=== PATIENT | male | born 1970 | race Caucasian/White ===

== ENCOUNTER 2021-06-05 17:10 | Observation (INO) | payer OTHER ==
[2021-06-05 17:38] LABS: Glucose,Whole Blood 159 mg/dL (75-99)
[2021-06-05] MEDS ORDERED: DIAZEPAM 5 MG/ML 2 ML INJ IVP STA (17:40)
[2021-06-05] MEDS ORDERED: ONDANSETRON 4 MG/2 ML VIAL IVP STA (17:40)
[2021-06-05 17:56] LABS: Basophils # (A) 0.1 k/uL (0-0.2); Basophils % (A) 1 %; Eosinophils # (A) 0.3 k/uL (0-0.7); Eosinophils % (A) 3 %; HCT 47.9 % (39.0-53.0); HGB 15.9 gm/dL (13.0-17.5); Lymphocytes # (A) 3.2 k/uL (1.0-4.8); Lymphocytes % (A) 28 %; MCH 29.4 pg (25.0-35.0); MCHC 33.2 g/dL (31.0-37.0); MCV 88.4 fL (80.0-100.0); Mean Platelet Volume 6.4; Monocytes # (A) 0.7 k/uL (0-1.0); Monocytes % (A) 6 %; Neutrophils # (A) 6.9 k/uL (1.3-7.7); Neutrophils % (A) 60 %; Platelet Count 556 k/uL (150-450); RBC 5.41 m/uL (4.30-5.90); RDW 13.3 % (11.5-15.5); WBC 11.5 k/uL (3.8-10.6)
[2021-06-05 18:05] LABS: ALT 33 U/L (4-49); AST 46 U/L (17-59); Acetaminophen <10.0 ug/mL; African American GFR (CKD) >90 (>60 ml/min/1.73 sqM); Albumin 4.6 g/dL (3.5-5.0); Alcohol <10 mg/dL; Alkaline Phosphatase 102 U/L (38-126); Anion Gap 15 mmol/L; Blood Urea Nitrogen 10 mg/dL (9-20); Calcium 9.8 mg/dL (8.4-10.2); Carbon Dioxide 20 mmol/L (22-30); Chloride 104 mmol/L (98-107); Glucose 168 mg/dL (74-99); Non-African American GFR(CKD) 90 (>60 ml/min/1.73 sqM); Potassium 3.6 mmol/L (3.5-5.1); Salicylate <1.0 mg/dL; Sodium 139 mmol/L (137-145); Total Bilirubin 0.6 mg/dL (0.2-1.3); Total Protein 7.8 g/dL (6.3-8.2)
[2021-06-05 18:15] LABS: INR 0.9 (<1.2); Partial Thromboplastin Time 21.4 sec (22.0-30.0); Prothrombin Time 10.2 sec (9.0-12.0)
--- NOTE | 2021-06-05 18:32 | CT ---
EXAMINATION TYPE: CT brain cspine wo con DATE OF EXAM: 06/05/2021 COMPARISON: CT 06/19/2010. HISTORY: trauma, ams, unresponsive CT DLP: 1796.1 mGycm Automated exposure control for dose reduction was used. TECHNIQUE: CT scan of the head and cervical spine are performed without contrast. FINDINGS: There is no acute intracranial hemorrhage, mass effect, or midline shift identified. The ventricles and sulci are within normal limits in size. The globes are intact. The visualized sinuse s demonstrate small right maxillary sinus mucus retention cyst, otherwise clear. Cervical spine is visualized in its entirety from C1 through upper thoracic levels and demonstrates s atisfactory alignment without evidence of acute fracture or dislocation. Prevertebral soft tissue ap pears within normal limits. The C1-C2 articulation is unremarkable. IMPRESSION: 1. There is no acute fracture or dislocation evident in the cervical spine. 2. No acute intracranial hemorrhage, mass effect, or midline shift is seen.
--- NOTE | 2021-06-05 18:39 | CT ---
EXAMINATION TYPE: CT ChestAbdPelvis w con DATE OF EXAM: 06/05/2021 COMPARISON: Same-day radiographs. HISTORY: trauma, ams, unresponsive CT DLP: 3930.3 mGycm Automated exposure control for dose reduction was used. CONTRAST: CT scan of the chest, abdomen and pelvis is performed without Oral Contrast and with IV Contrast, pat ient injected with 100 mL of Isovue 300. FINDINGS: LUNGS: The lungs are grossly clear, there is no concerning parenchymal mass or nodule identified. T here is no pleural effusion or pneumothorax seen. The tracheobronchial tree is patent. MEDIASTINUM: There are no greater than 1 cm hilar or mediastinal lymph nodes. No pericardial effusi on is seen. OTHER: No additional significant abnormality is seen. LIVER/GB: Hepatic steatosis. Otherwise no significant abnormality is appreciated. PANCREAS: No significant abnormality is seen. SPLEEN: No significant abnormality is seen. ADRENALS: No significant abnormality is seen. KIDNEYS: No significant abnormality is seen. BOWEL: No significant abnormality is seen. REPRODUCTIVE ORGANS: No gross abnormality seen. LYMPH NODES: No greater than 1 cm abdominal or pelvic lymph nodes are appreciated. OSSEOUS STRUCTURES: No significant abnormality is seen. OTHER: None IMPRESSION: No acute osseous fracture, abnormal fluid collection, or evidence of solid organ injury i n the thorax, abdomen, or pelvis.
--- NOTE | 2021-06-05 18:41 | XR ---
EXAMINATION TYPE: XR chest 2V DATE OF EXAM: 06/05/2021 COMPARISON: 10/14/2015 HISTORY: Altered mental status TECHNIQUE: Frontal and lateral views of the chest are obtained. FINDINGS: There is mild interstitial prominence. No significant infiltrate, pleural effusion, or pne umothorax seen. The cardiac silhouette size is mildly enlarged. The osseous structures are intact. IMPRESSION: Mild interstitial edema versus atelectasis.
[2021-06-05] MEDS ORDERED: ASPIRIN 81 MG PO STA (19:12)
[2021-06-05 19:27] LABS: Appearance,Urine Clear (Clear); Bilirubin,Urine Negative (Negative); Blood,Urine Negative (Negative); Color,Urine Light Yellow; Glucose,Urine (UA) Negative (Negative); Ketones,Urine 1+ (Negative); Leukocyte Esterase,Urine Negative (Negative); Nitrite,Urine Negative (Negative); PH, Urine 5.5 (5.0-8.0); Protein,Urine Trace (Negative); Urobilinogen,Urine <2.0 mg/dL (<2.0)
[2021-06-05 19:43] LABS: Amphetamine Screen,Urine Not Detected (NotDetected); Barbiturate Screen,Urine Detected (NotDetected); Benzodiazepines Screen,Urine Detected (NotDetected); Cocaine Screen,Urine Not Detected (NotDetected); Methadone Screen, Urine Not Detected (NotDetected); Opiate Screen,Urine Not Detected (NotDetected); Oxycodone Screen, Urine Not Detected (NotDetected); Phencyclidine Screen,Urine Not Detected (NotDetected); Tricyclic Antidepressant,Urine Not Detected (NotDetected); Urn Cannabinoid Scrn Detected (NotDetected)
--- NOTE | 2021-06-05 19:44 | P.CNNES ---
History of Present Illness Consult date: 06/05/21 Requesting physician: Radha Burgess Reason for Consult: Vertigo, nausea vomiting History of Present Illness: Patient is a 50-year-old right-handed male with history of hyperlipidemia, hypertension, migraines, chronic back pain with chronic mild left leg weakness, went for a bike ride between 3:30 to 4 PM. He was half way on his ride, when he became dizzy, everything started spinning, sweating, couldn't stand, couldn't see and then he started vomiting. He was feeling like having hot flashes. He came back home and laid down. His daughter came over at around 4:30 PM, found him crouched on the floor. When trying to get up, he was losing balance. He kept throwing up with dry heaving. He was very light and noise sensitivity, dizzy. Hard time standing up. He was having some slurred speech. Patient arrived to the hospital at 5:10 PM. His vitals on arrival was blood pressure 136/76, pulse 49, respiration 20. Saturation 99%. Chest x-ray showed mild interstitial edema, with no acute process. Computed tomography scan of the head and CT of the cervical spine are normal. CT of the abdomen and pelvis with and without contrast are normal. Patient complains of mild headache, rates 2/10. Patient denies any history of head or neck trauma in the last 6 months. Does not go to chiropractors. Patient is constantly holding his head, due to light sensitivity. Patient does not take any blood thinners. He has history of hypertension for 10 years, denies diabetes. He quit smoking 30 years ago, was a light smoker before. No alcohol or drugs. Patient takes hydrochlorothiazide 25 mg, Fioricet as needed for migraines, lisinopril 40 mg daily and simvastatin 40 mg at bedtime. He does get migraines, but not very often. He never had symptoms like this before. Review of Systems Denies any chest pain, abdominal pain. He has been having some nausea vomiting dry heaving. No fever or chills. No weight loss. Mild headache. History of migraines. Denies any weight loss. No loss of control of urine. No dysuria. No rash. All other review of systems noncontributory. Past Medical History Additional Past Medical History / Comment(s): unk patient not answering History of Any Multi-Drug Resistant Organisms: None Reported Additional Past Surgical History / Comment(s): unk patient not answering Past Psychological History: No Psychological Hx Reported Smoking Status: Never smoker Past Alcohol Use History: Occasional Past Drug Use History: Marijuana Medications and Allergies Home Medications Medication Instructions Recorded Confirmed Type Butalb/APAP/Caff 50-325-40Mg 1 tab PO Q8H PRN 06/05/21 06/05/21 History [Fioricet 50-325-40] Simvastatin 40 mg PO DAILY 06/05/21 06/05/21 History hydroCHLOROthiazide 25 mg PO DAILY 06/05/21 06/05/21 History lisinopriL 40 mg PO DAILY 06/05/21 06/05/21 History Allergies Allergy/AdvReac Type Severity Reaction Status Date / Time No Known Allergies Allergy Verified 06/05/21 19:07 Physical Examination - Vital Signs Vital Signs: Vital Signs Pulse Resp BP Pulse Ox 06/05/21 17:33 49 L 20 136/76 99 Intake and Output 06/05/21 06/05/21 06/05/21 06:59 14:59 22:59 Other: Weight 117.843 kg Patient is a middle aged male, who appears to be in distress because of dizziness, light and noise sensitivity. He has mild headache, 2/10. He appears restless, tries to sit on the edge of the bed. Almost appears like he wants to get out of the bed. Patient is slightly delirious, restless, but otherwise awake oriented to time place and person. Speech and language functions are normal. Attention, concentration and fund of knowledge is limited due to dizziness. On cranial examination, pupils are equal, round and reacting to light, visual oleary are full on confrontation, no neglect on double simultaneous stimulation. His extraocular muscles are intact with no obvious nystagmus. Face is symmetric, tongue protrudes to the midline. Palatal elevation and sensation normal, hearing and shoulder shrug normal, facial sensation normal. On muscle strength testing, there is no pronator drift. 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 In the lower extremities patient has chronic weakness of the left foot from back issues. His right ankle is normal, but weak about 4+ on the left. Patient, and his significant other and daughter all agrees that this is chronic finding. Hip flexion is 4+ on the right, 4-left side. Deep tendon reflexes are hypoactive, but symmetric and plantars downgoing. Sensory to touch is equal with no neglect on double simultaneous stimulation. Cerebellar function showed no ataxia for [id number] testing. Tone and bulk of muscles normal. Gait not checked. On general examination, there is no carotid bruit or murmur, S1-S2 audible. Abdomen is soft nontender. Chest is clear. Peripheral pulses are present. No edema. Results - Laboratory Findings CBC and BMP: 06/05/21 17:44 06/05/21 17:44 Abnormal Lab Findings: Abnormal Labs 06/05/21 06/05/21 06/05/21 17:26 17:44 17:44 WBC 11.5 H Plt Count 556 H APTT 21.4 L Carbon Dioxide Glucose POC Glucose (mg/dL) 159 H 06/05/21 17:44 WBC Plt Count APTT Carbon Dioxide 20 L Glucose 168 H POC Glucose (mg/dL) Assessment and Plan Assessment: * 50-year-old male with acute onset of vertigo, dizziness, transient visual disturbance, generalized weakness and profuse sweating. Exact cause remains uncertain. TIA/CVA in the brainstem (or cerebellum) also a possibility. Current NIH stroke scale is 0. Patient not a candidate for TPA. * Hypertension * Hyperlipidemia * Obesity * History of migraines Plan: * Patient started on aspirin 325 mg stat. * MRI of the brain to evaluate for CVA, MRA of the head rule out any intracranial vascular disease. * Carotid Doppler. * 2-D echo. * Continue statins. * We will follow. * Thank you for the consult.
[2021-06-05 19:47] LABS: Specific Gravity,Urine >1.050 (1.001-1.035)
--- NOTE | 2021-06-05 20:34 | ED ---
General Adult HPI - General Chief complaint: Dizziness Stated complaint: weakness/vomiting/sob/passing out/slur speech Time Seen by Provider: 06/05/21 17:26 Source: patient, family Mode of arrival: ambulatory Limitations: no limitations - History of Present Illness Initial comments: 50-year-old male past medical history of high cholesterol, high blood pressure who presents emergency Department with altered mental status, vertigo, nausea and vomiting. Patient reports that he was riding his bike when he had sudden onset of these symptoms. He feels as if the room is spinning. Patient appears to be in and out of consciousness. Denies any injuries or recent head trauma. Denies any fevers or chills. Reports that his symptoms were sudden onset. No history of similar in the past. Patient also reports to some midepigastric abdominal pain and chest pain. Patient is extremely diaphoretic and having difficulty answering questions. States that he is normally on cholesterol and high blood pressure medications however has not had them in a week. Denies daily drug or alcohol use. The remainder of the HPI is limited to the patient's altered mental status - Related Data Home Medications Medication Instructions Recorded Confirmed Butalb/APAP/Caff 50-325-40Mg 1 tab PO Q8H PRN 06/05/21 06/05/21 [Fioricet 50-325-40] Simvastatin 40 mg PO DAILY 06/05/21 06/05/21 hydroCHLOROthiazide 25 mg PO DAILY 06/05/21 06/05/21 lisinopriL 40 mg PO DAILY 06/05/21 06/05/21 Allergies Allergy/AdvReac Type Severity Reaction Status Date / Time No Known Allergies Allergy Verified 06/05/21 19:07 Review of Systems ROS Statement: Those systems with pertinent positive or pertinent negative responses have been documented in the HPI. ROS Other: All systems not noted in ROS Statement are negative. Past Medical History Additional Past Medical History / Comment(s): unk patient not answering History of Any Multi-Drug Resistant Organisms: None Reported Additional Past Surgical History / Comment(s): unk patient not answering Past Psychological History: No Psychological Hx Reported Smoking Status: Never smoker Past Alcohol Use History: Occasional Past Drug Use History: Marijuana General Exam Limitations: no limitations Course Vital Signs 06/05/21 06/05/21 17:33 21:35 Temperature 98.1 F Pulse Rate 49 L 68 Respiratory 20 16 Rate Blood Pressure 136/76 149/88 O2 Sat by Pulse 99 98 Oximetry EKG Findings - EKG Comments: EKG Findings:: EKG demonstrates sinus bradycardia with a ventricular rate of 49. MI interval 168. QRS 106. QTC of 442. No acute ST segment elevations. No signs of high degree block. Medical Decision Making - Medical Decision Making On arrival patient is placed in room 2. IV is established. Patient was given 5 mg of Valium for his vertiginous symptoms and 4 mg of Zofran for his vomiting. Abs are obtained. Accu-Chek is performed. 12-lead EKG is performed. He is immediately sent over for a CT of his head due to his altered mental status. CT also performed of his chest abdomen and pelvis due to his reported chest and abdominal pain with diaphoresis. Lavatory studies are reviewed and are within normal limits. UDS does come back positive for barbiturates, benzodiazepines and marijuana. Benzodiazepines likely due to the Valium. CT of the patient's brain and cervical spine demonstrates no acute fracture or dislocation in the cervical spine. No acute intracranial hemorrhage, mass effect or midline shift. Chest and pelvis fails to demonstrate any acute process. Patient is reevaluated and continues to have vertiginous symptoms. He is also extremely anxious and getting up out of bed. I did order an additional dose of Ativan. Dr. Montana is in the emergency department. I did request that he see the patient for which she does. There is concern for possible posterior stroke and therefore the patient is given a dose of aspirin and an MRI is ordered. Patient does show improvement in his agitation and diaphoresis. I discussed the treatment plan with him and his family members. Spoke with Dr. Storey who agreed to admit the patient. Patient awaiting a bed on the floor. - Lab Data Result diagrams: 06/05/21 17:44 06/05/21 17:44 Lab Results 06/05/21 06/05/21 06/05/21 Range/Units 17:26 17:44 17:44 WBC 11.5 H (3.8-10.6) k/uL RBC 5.41 (4.30-5.90) m/uL Hgb 15.9 (13.0-17.5) gm/dL Hct 47.9 (39.0-53.0) % MCV 88.4 (80.0-100.0) fL MCH 29.4 (25.0-35.0) pg MCHC 33.2 (31.0-37.0) g/dL RDW 13.3 (11.5-15.5) % Plt Count 556 H (150-450) k/uL MPV 6.4 Neutrophils % 60 % Lymphocytes % 28 % Monocytes % 6 % Eosinophils % 3 % Basophils % 1 % Neutrophils # 6.9 (1.3-7.7) k/uL Lymphocytes # 3.2 (1.0-4.8) k/uL Monocytes # 0.7 (0-1.0) k/uL Eosinophils # 0.3 (0-0.7) k/uL Basophils # 0.1 (0-0.2) k/uL PT 10.2 (9.0-12.0) sec INR 0.9 (<1.2) APTT 21.4 L (22.0-30.0) sec Sodium (137-145) mmol/L Potassium (3.5-5.1) mmol/L Chloride (98-107) mmol/L Carbon Dioxide (22-30) mmol/L Anion Gap mmol/L BUN (9-20) mg/dL Creatinine (0.66-1.25) mg/dL Est GFR (CKD-EPI)AfAm (>60 ml/min/1.73 sqM) Est GFR (CKD-EPI)NonAf (>60 ml/min/1.73 sqM) Glucose (74-99) mg/dL POC Glucose (mg/dL) 159 H (75-99) mg/dL POC Glu International Relations Teacher ID Fetterly, Seema Calcium (8.4-10.2) mg/dL Total Bilirubin (0.2-1.3) mg/dL AST (17-59) U/L ALT (4-49) U/L Alkaline Phosphatase (38-126) U/L Ammonia (<30) umol/L Troponin I (0.000-0.034) ng/mL Total Protein (6.3-8.2) g/dL Albumin (3.5-5.0) g/dL TSH (0.465-4.680) mIU/L Urine Color Urine Appearance (Clear) Urine pH (5.0-8.0) Ur Specific [place] (1.001-1.035) Urine Protein (Negative) Urine Glucose (UA) (Negative) Urine Ketones (Negative) Urine Blood (Negative) Urine Nitrite (Negative) Urine Bilirubin (Negative) Urine Urobilinogen (<2.0) mg/dL Ur Leukocyte Esterase (Negative) Salicylates mg/dL Urine Opiates Screen (NotDetected) Ur Oxycodone Screen (NotDetected) Urine Methadone Screen (NotDetected) Ur Propoxyphene Screen (NotDetected) Acetaminophen ug/mL Ur Barbiturates Screen (NotDetected) U Tricyclic Antidepress (NotDetected) Ur Phencyclidine Scrn (NotDetected) Ur Amphetamines Screen (NotDetected) U Methamphetamines Scrn (NotDetected) U Benzodiazepines Scrn (NotDetected) Urine Cocaine Screen (NotDetected) U Marijuana (THC) Screen (NotDetected) Serum Alcohol mg/dL 06/05/21 06/05/21 06/05/21 Range/Units 17:44 17:44 17:44 WBC (3.8-10.6) k/uL RBC (4.30-5.90) m/uL Hgb (13.0-17.5) gm/dL Hct (39.0-53.0) % MCV (80.0-100.0) fL MCH (25.0-35.0) pg MCHC (31.0-37.0) g/dL RDW (11.5-15.5) % Plt Count (150-450) k/uL MPV Neutrophils % % Lymphocytes % % Monocytes % % Eosinophils % % Basophils % % Neutrophils # (1.3-7.7) k/uL Lymphocytes # (1.0-4.8) k/uL Monocytes # (0-1.0) k/uL Eosinophils # (0-0.7) k/uL Basophils # (0-0.2) k/uL PT (9.0-12.0) sec INR (<1.2) APTT (22.0-30.0) sec Sodium 139 (137-145) mmol/L Potassium 3.6 (3.5-5.1) mmol/L Chloride 104 (98-107) mmol/L Carbon Dioxide 20 L (22-30) mmol/L Anion Gap 15 mmol/L BUN 10 (9-20) mg/dL Creatinine 0.98 (0.66-1.25) mg/dL Est GFR (CKD-EPI)AfAm >90 (>60 ml/min/1.73 sqM) Est GFR (CKD-EPI)NonAf 90 (>60 ml/min/1.73 sqM) Glucose 168 H (74-99) mg/dL POC Glucose (mg/dL) (75-99) mg/dL POC Glu International Relations Teacher ID Calcium 9.8 (8.4-10.2) mg/dL Total Bilirubin 0.6 (0.2-1.3) mg/dL AST 46 (17-59) U/L ALT 33 (4-49) U/L Alkaline Phosphatase 102 (38-126) U/L Ammonia <9 (<30) umol/L Troponin I (0.000-0.034) ng/mL Total Protein 7.8 (6.3-8.2) g/dL Albumin 4.6 (3.5-5.0) g/dL TSH 1.610 (0.465-4.680) mIU/L Urine Color Light Yellow Urine Appearance Clear (Clear) Urine pH 5.5 (5.0-8.0) Ur Specific [place] >1.050 H (1.001-1.035) Urine Protein Trace H (Negative) Urine Glucose (UA) Negative (Negative) Urine Ketones 1+ H (Negative) Urine Blood Negative (Negative) Urine Nitrite Negative (Negative) Urine Bilirubin Negative (Negative) Urine Urobilinogen <2.0 (<2.0) mg/dL Ur Leukocyte Esterase Negative (Negative) Salicylates <1.0 mg/dL Urine Opiates Screen Not Detected (NotDetected) Ur Oxycodone Screen Not Detected (NotDetected) Urine Methadone Screen Not Detected (NotDetected) Ur Propoxyphene Screen Not Detected (NotDetected) Acetaminophen <10.0 ug/mL Ur Barbiturates Screen Detected H (NotDetected) U Tricyclic Antidepress Not Detected (NotDetected) Ur Phencyclidine Scrn Not Detected (NotDetected) Ur Amphetamines Screen Not Detected (NotDetected) U Methamphetamines Scrn Not Detected (NotDetected) U Benzodiazepines Scrn Detected H (NotDetected) Urine Cocaine Screen Not Detected (NotDetected) U Marijuana (THC) Screen Detected H (NotDetected) Serum Alcohol <10 mg/dL 06/05/21 Range/Units 17:44 WBC (3.8-10.6) k/uL RBC (4.30-5.90) m/uL Hgb (13.0-17.5) gm/dL Hct (39.0-53.0) % MCV (80.0-100.0) fL MCH (25.0-35.0) pg MCHC (31.0-37.0) g/dL RDW (11.5-15.5) % Plt Count (150-450) k/uL MPV Neutrophils % % Lymphocytes % % Monocytes % % Eosinophils % % Basophils % % Neutrophils # (1.3-7.7) k/uL Lymphocytes # (1.0-4.8) k/uL Monocytes # (0-1.0) k/uL Eosinophils # (0-0.7) k/uL Basophils # (0-0.2) k/uL PT (9.0-12.0) sec INR (<1.2) APTT (22.0-30.0) sec Sodium (137-145) mmol/L Potassium (3.5-5.1) mmol/L Chloride (98-107) mmol/L Carbon Dioxide (22-30) mmol/L Anion Gap mmol/L BUN (9-20) mg/dL Creatinine (0.66-1.25) mg/dL Est GFR (CKD-EPI)AfAm (>60 ml/min/1.73 sqM) Est GFR (CKD-EPI)NonAf (>60 ml/min/1.73 sqM) Glucose (74-99) mg/dL POC Glucose (mg/dL) (75-99) mg/dL POC Glu International Relations Teacher ID Calcium (8.4-10.2) mg/dL Total Bilirubin (0.2-1.3) mg/dL AST (17-59) U/L ALT (4-49) U/L Alkaline Phosphatase (38-126) U/L Ammonia (<30) umol/L Troponin I <0.012 (0.000-0.034) ng/mL Total Protein (6.3-8.2) g/dL Albumin (3.5-5.0) g/dL TSH (0.465-4.680) mIU/L Urine Color Urine Appearance (Clear) Urine pH (5.0-8.0) Ur Specific [place] (1.001-1.035) Urine Protein (Negative) Urine Glucose (UA) (Negative) Urine Ketones (Negative) Urine Blood (Negative) Urine Nitrite (Negative) Urine Bilirubin (Negative) Urine Urobilinogen (<2.0) mg/dL Ur Leukocyte Esterase (Negative) Salicylates mg/dL Urine Opiates Screen (NotDetected) Ur Oxycodone Screen (NotDetected) Urine Methadone Screen (NotDetected) Ur Propoxyphene Screen (NotDetected) Acetaminophen ug/mL Ur Barbiturates Screen (NotDetected) U Tricyclic Antidepress (NotDetected) Ur Phencyclidine Scrn (NotDetected) Ur Amphetamines Screen (NotDetected) U Methamphetamines Scrn (NotDetected) U Benzodiazepines Scrn (NotDetected) Urine Cocaine Screen (NotDetected) U Marijuana (THC) Screen (NotDetected) Serum Alcohol mg/dL Disposition Clinical Impression: Vertigo, Bradycardia, Tetrahydrocannabinol (THC) use disorder, mild, abuse Disposition: ADMITTED IP TO THIS [facility] Condition: Stable Is patient prescribed a controlled substance at d/c from ED?: No Decision to Admit Reason: Admit from EC Decision Date: 06/05/21 Decision Time: 20:37
[2021-06-05] MEDS ORDERED: LORazepam 2 MG/ML INJ IV STA (20:36)
[2021-06-05] MEDS ORDERED: NALOXONE 0.4 MG/ML 1 ML VIAL IV PRN (20:37)
[2021-06-05] MEDS ORDERED: CLOPIDOGREL 75 MG TAB PO STA (21:35)
[2021-06-05] MEDS ORDERED: HYDROcodone/APAP 5-325MG 1 EACH TAB PO STA (22:00)
--- NOTE | 2021-06-05 22:12 | US ---
EXAMINATION TYPE: US carotid duplex BILAT DATE OF EXAM: 06/05/2021 COMPARISON: CT CLINICAL HISTORY: Possible TIA. Possible TIA per order. Previous smoker. Hypertension, hyperlipidemia . EXAM MEASUREMENTS: RIGHT: Peak Systolic Velocity (PSV) cm/sec ----- Right CCA: 50.3 ----- Right ICA: 52.0 ----- Right ECA: 83.1 ICA/CCA ratio: 1.0 RIGHT: End Diastole cm/sec ----- Right CCA: 12.7 ----- Right ICA: 9.2 ----- Right ECA: 8.4 LEFT: Peak Systolic Velocity (PSV) cm/sec ----- Left CCA: 68.8 ----- Left ICA: 45.9 ----- Left ECA: 79.5 ICA/CCA ratio: 0.7 LEFT: End Diastole cm/sec ----- Left CCA: 14.9 ----- Left ICA: 14.5 ----- Left ECA: 11.3 VERTEBRALS (direction of flow): Right Vertebral: Antegrade Left Vertebral: Antegrade Rhythm: Normal No elevated velocities at this time. Intimal thickening seen bilateral carotid arteries. Plaque seen within left carotid bulb. -Incidental findings: Complex area seen within right thyroid lobe: 1.3 x 1.2 x 1.4 cm. -Hypoechoic area seen within right neck: 1.4 x 1.2 x 0.7 cm. -Complex area seen within left thyroid lobe: 1.8 x 1.6 x 1.5 cm. IMPRESSION: Complex areas in both thyroid lobes likely related to benign multinodular goiter. There is antegrade flow in the vertebral arteries. The images and measurements suggest less than 25% stenosis in both internal carotid arteries. Criteria for Assigning % of Stenosis / Diameter reduction (Estimation based on the indirect measurements of the internal carotid artery velocities (ICA PSV). 1. Normal (no stenosis)=ICA PSV < 125 cm/s: ratio < 2.0: ICA EDV<40 cm/s. 2. Less than 50% stenosis=ICA PSV < 125 cm/s: ratio < 2.0: ICA EDV<40 cm/s. 3. 50 to 69% stenosis=ICA PSV of 125 to 230 cm/s: ration 2.0 ? 4.0: ICA EDV 40-100 cm/s. 4. Greater than 70% stenosis to near occlusion= ICA PSV > 230 cm/s: ratio > 4.0: ICA EDV > 100 cm/s. 5. Near occlusion= ICA PSV velocities may be low or undetectable: variable ratio and ICA EDV. 6. Total occlusion=unable to detect flow.
[2021-06-06] MEDS ORDERED: BUTALB/APAP/CAFF 50-325-40MG TAB PO PRN (10:08)
[2021-06-06] MEDS ORDERED: NON FORMULARY DRUG (Simvastatin [Simvastatin] 40 MG Tablet) PO SCH (10:15)
--- NOTE | 2021-06-06 10:15 | P.PN ---
Subjective Progress Note Date: 06/06/21 Patient was seen for a follow-up. Patient is doing better than yesterday. Patient rates his headache 3-4/10. Bright light still bothers him. Patient has slight nausea but no vomiting. He states that he got up to the bathroom and was doing well, but when he turned around, started some dizziness. His vision is fine. No numbness or tingling. No new focal weakness noticeable. Denies any problem with the speech or swallowing. No double vision. Objective - Vital Signs Vital signs: Vital Signs Temp 97.8 F 06/06/21 07:00 Pulse 61 06/06/21 07:00 Resp 20 06/06/21 07:00 BP 167/88 06/06/21 07:00 Pulse Ox 98 06/06/21 07:00 Intake & Output 06/05/21 06/06/21 06/06/21 18:59 06:59 18:59 Intake Total 0 Balance 0 Weight 117.843 kg 117.843 kg Intake: Oral 0 Other: Voiding Method Toilet # Voids 2 - Exam Patient continues to be light sensitive, covering his eyes, and using a cold cloth on his forehead. Speech and language functions are normal. He is fairly well oriented. Cranial nerves reveal normal pupils, round and reacting. Visual oleary are full on confrontation with no neglect. Extraocular muscles are intact. No nystagmus. Face is symmetric, tongue protrudes to the midline. Palatal elevation sensation normal, hearing and shoulder shrug normal. Facial sensation normal. On muscle strength testing, patient has very mild left drift without pronation. His strength is normal in the arms, except left residential mental health worker is about 4+. Normal in the deltoids biceps triceps bilaterally, and in the right residential mental health worker. In the lower extr emities hip flexion is 5 on the right, 4-left. Ankle dorsiflexion 5 on the right, 5-on the left with giveaway weakness. This is old finding. Reflexes are almost absent, except left knee which is 1+. Sensations are equal with no neglect. No ataxia for [id number] or [id number] testing. Patient walked to the bathroom and appeared quite steady. He was walking very slowly. - Labs CBC & Chem 7: 06/06/21 05:03 06/06/21 05:03 Labs: Abnormal Lab Results - Last 24 Hours (Table) 10/18/21 10/18/21 10/18/21 Range/Units 17:26 17:44 17:44 WBC 11.5 H (3.8-10.6) k/uL Plt Count 556 H (150-450) k/uL APTT 21.4 L (22.0-30.0) sec Carbon Dioxide (22-30) mmol/L Glucose (74-99) mg/dL POC Glucose (mg/dL) 159 H (75-99) mg/dL Ur Specific [place] (1.001-1.035) Urine Protein (Negative) Urine Ketones (Negative) Ur Barbiturates Screen (NotDetected) U Benzodiazepines Scrn (NotDetected) U Marijuana (THC) Screen (NotDetected) 06/05/21 06/05/21 Range/Units 17:44 17:44 WBC (3.8-10.6) k/uL Plt Count (150-450) k/uL APTT (22.0-30.0) sec Carbon Dioxide 20 L (22-30) mmol/L Glucose 168 H (74-99) mg/dL POC Glucose (mg/dL) (75-99) mg/dL Ur Specific [place] >1.050 H (1.001-1.035) Urine Protein Trace H (Negative) Urine Ketones 1+ H (Negative) Ur Barbiturates Screen Detected H (NotDetected) U Benzodiazepines Scrn Detected H (NotDetected) U Marijuana (THC) Screen Detected H (NotDetected) Assessment and Plan Assessment: * 50-year-old male with acute onset of vertigo, dizziness, transient visual disturbance, generalized weakness and profuse sweating. Exact cause remains uncertain. TIA/CVA in the brainstem (or cerebellum) also a possibility. Current NIH stroke scale is 0. Patient not a candidate for TPA. * Cerumen impaction right external auditory canal. * Hypertension * Hyperlipidemia * Obesity * History of migraines Plan: * Patient started on aspirin 325 mg stat. Patient was given 1 dose of Plavix 75 mg yesterday as well. Continue monotherapy with aspirin, unless MRI confirms CVA, then would recommend DAP. * CTA of the head and neck could not be performed yesterday because patient already had received contrast dye for CT abdomen. * Await MRI of the brain to evaluate for CVA, MRA of the head rule out any intracranial vascular disease. * Carotid Doppler showed antegrade flow in both vertebral arteries. There is less than 25% stenosis in both ICAs. Complex areas in both thyroid lobes related to benign multinodular goiter. We will defer this thyroid issue to IM. * 2-D echo pending. * Lipid panel pending, hemoglobin A1c 5.7. * Urine drug screen positive for barbiturate, benzodiazepine and marijuana. Ammonia normal 9. TSH normal 1.61. * Continue statins. Patient on Zocor 40 mg daily. Will switch to Lipitor 40 mg. * Patient has moderate amount of wax impacted in the right EAC. Suggest ENT consult for removal of the wax from the right EAC. * Telemetry monitoring so far showing sinus rhythm with sinus bradycardia. No other arrhythmia. Addendum: 2-D echo revealed normal left-ventricular size, EF greater than 55%. Left ventricle size is normal. Left atrium is mildly dilated. Mild aortic valve sclerosis. MRI of the brain without contrast revealed no acute stroke. There is small amount of fluid surrounding the optic nerves which is a nonspecific finding can occasionally be seen with papilledema or increased intracranial pressure correlate clinically. Additionally, there is a signal noted within the ophthalmic vein bilaterally which could be related to slow flow artifact. However postcontrast MRI of the brain recommended for further evaluation. MRA of the brain revealed no evidence of vascular malformation or sizable ane urysm. Stat MRI of the brain with contrast was performed, which revealed no abnormal enhancement. Lumbar puncture was recommended to evaluate for opening pressure, rule out pseudotumor cerebri, or other inflammatory/infectious process. Discussed with Dr. Matson, and agreed with initiating lumbar puncture.
--- NOTE | 2021-06-06 10:37 | MR ---
EXAMINATION TYPE: MR brain wo con DATE OF EXAM: 06/06/2021 COMPARISON: 06/05/2021 HISTORY: vertigo, weakmss, ?CVA TECHNIQUE: T1-weighted sagittal, T2, FLAIR, and diffusion axial, and T2 coronal coronal views of the brain are submitted. FINDINGS: There is no evidence of acute ischemia. Ventricular system is midline without displacement. There is a single focus of abnormal signal left parietal white matter which is nonspecific. Changes of chronic sinusitis are noted.. There is no mass effect. Craniocervical junction maintained. Sella turcica has a normal appearance. Changes of chronic sinusit is. Fluid surrounding the optic nerves is a nonspecific finding can occasionally be seen with increas ed intracranial pressure correlate clinically. Craniocervical junction maintained. IMPRESSION: 1. No diagnostic evidence of acute ischemia. 2. There is small amount of fluid surrounding the optic nerves which is a non-specific finding can oc casionally be seen with papilledema or increased intracranial pressure correlate clinically. Addition ally, there is a signal noted within the ophthalmic vein bilaterally which could be related to slow f low artifact. However, postcontrast MRI of the brain recommended for further evaluation.
--- NOTE | 2021-06-06 10:42 | MR ---
EXAMINATION TYPE: MR angio head wo con DATE OF EXAM: 06/06/2021 COMPARISON: NONE HISTORY: vertigo, weakmss, ?CVA TECHNIQUE: Utilizing 3-D [id number] intracranial MRA of the [place] was performed. FINDINGS: The vertebrobasilar and carotid systems are patent. There is no sizable aneurysm or vascular malform ation. IMPRESSION: 1. No evidence of vascular malformation or sizable aneurysm.
[2021-06-06] MEDS: ASPIRIN 325 MG TAB PO SCH (10:44)
[2021-06-06] MEDS: lisinopriL 20 MG TAB PO SCH (10:44)
[2021-06-06] MEDS: hydroCHLOROthiazide 25 MG TAB PO SCH (10:45)
[2021-06-06 10:58] LABS: African American GFR (CKD) 100.6 (60.0-200.0); Anion Gap 14.9 mmol/L (4.00-12.00); Calcium 9.7 mg/dL (8.7-10.3); Carbon Dioxide 21.1 mmol/L (21.6-31.8); Non-African American GFR(CKD) 86.8 (60.0-200.0); Potassium 4.6 mmol/L (3.5-5.5)
[2021-06-06 11:15] LABS: Basophils # (A) 0.04 X 10*3/uL (0.00-0.10); Basophils % (A) 0.5 %; Eosinophils # (A) 0.11 X 10*3/uL (0.04-0.35); Eosinophils % (A) 1.4 %; HCT 46.8 % (39.6-50.0); HGB 15.6 g/dL (13.0-17.0); Lymphocytes # (A) 1.76 X 10*3/uL (0.90-5.00); MCH 29.2 pg (27.0-32.0); MCHC 33.3 g/dL (32.0-37.0); MCV 87.6 fL (80.0-97.0); Mean Platelet Volume 8.2 fL (9.5-12.2); Monocytes # (A) 0.71 X 10*3/uL (0.20-1.00); Monocytes % (A) 9.3 %; Neutrophils # (A) 5.01 X 10*3/uL (1.80-7.70); Neutrophils % (A) 65.4 %; Platelet Count 498 X 10*3/uL (140-440); RBC 5.34 X 10*6/uL (4.40-5.60); RDW 13.5 % (11.5-14.5); WBC 7.66 X 10*3/uL (4.50-10.00)
[2021-06-06] MEDS ORDERED: MECLIZINE 25 MG TAB PO STA (12:04)
[2021-06-06 12:13] LABS: Glucose,Whole Blood 92 mg/dL (75-99)
[2021-06-06] MEDS: INSULIN ASPART (NovoLOG) 100 UNIT/ML VIAL SQ SCH ×3 (12:45→20:35)
--- NOTE | 2021-06-06 15:51 | MR ---
EXAMINATION TYPE: MR brain w con DATE OF EXAM: 06/06/2021 COMPARISON: MR brain 06/06/2021 HISTORY: vertigo, weakness, ?CVA. Abnormal MRI Brain wo done today. TECHNIQUE: Multiplanar, multisequence images of the brain and brainstem is performed without and with IV contras t, utilizing 10 mL intravenous Gadavist . FINDINGS: Postop contrast images performed. No abnormal enhancement. IMPRESSION: No abnormal enhancement is present.
--- NOTE | 2021-06-06 16:01 | ECHOF ---
Referral Reason:Vertigo, possible TIA. MEASUREMENTS -------- HEIGHT: 152.4 cm WEIGHT: 117.9 kg BP: IVSd: 1.0 cm (0.6 - 1.1) LVIDd: 5.2 cm (3.9 - 5.3) LVPWd: 1.1 cm (0.6 - 1.1) EDV(Teich): 130 ml IVSs: 1.4 cm LVIDs: 3.1 cm LVPWs: 1.4 cm %IVS Thck: 38 % ESV(Teich): 39 ml EF(Teich): 70 % %FS: 40 % SV(Teich): 91 ml LA Diam: 4.2 cm (2.7 - 3.8) RVIDd: 3.2 cm (< 3.3) LALs A4C: 5.5 cm LAAs A4C: 18.9 cm LAESV A-L A4C: 55 ml LAESV MOD A4C: 51 ml LALs A2C: 6.1 cm LAAs A2C: 20.5 cm LAESV A-L A2C: 58 ml LAESV MOD A2C: 57 ml LAESV(A-L): 60 ml LAESV Index (A-L): 28.49 ml/m Ao Diam: 2.8 cm (2.0 - 3.7) LA Diam: 4.7 cm (2.7 - 3.8) MV E [place]: 0.71 m/s MV DecT: 171 ms MV Dec [place]: 4.1 m/s MV A [place]: 0.51 m/s MV E/A Ratio: 1.39 MV PHT: 50 ms TR Vmax: 1.74 m/s TR maxP.05 mmHg RAP: 5.00 mmHg RVSP: 17.05 mmHg FINDINGS -------- Sinus rhythm. This was a technically adequate study. LV size, wall thickness and systolic function are normal, with an EF greater than 55%. The left jen tricular size is normal. The right ventricle is normal in size. LA is midly dilated 29-33ml/m2. The right atrial size is normal. There is mild aortic valve sclerosis. There is no evidence of aortic regurgitation. There is trace mitral regurgitation. Mild tricuspid regurgitation present. Right ventricular systolic pressure is normal at < 35 mmHg. The pulmonic valve was not well visualized. There is no pericardial effusion. CONCLUSIONS -------- 1. LV size, wall thickness and systolic function are normal, with an EF greater than 55%. 2. The left ventricular size is normal. 3. The right ventricle is normal in size. 4. LA is midly dilated 29-33ml/m2. 5. The right atrial size is normal. 6. There is mild aortic valve sclerosis. 7. There is trace mitral regurgitation. 8. Mild tricuspid regurgitation present. 9. The pulmonic valve was not well visualized. 10. There is no pericardial effusion. COMMANDING [employer]: Jaz Mosquera RDCS
[2021-06-06] MEDS: MECLIZINE 12.5 MG TAB PO SCH ×2 (17:52→20:41)
[2021-06-06 17:56] LABS: Glucose,Whole Blood 162 mg/dL (75-99)
--- NOTE | 2021-06-06 19:12 | P.HPIM ---
History of Present Illness H&P Date: 06/06/21 Chief Complaint: Everything spinning History of presenting complaint This is a pleasant 50-year-old patient was chronic stable medical conditions include hyperlipidemia, hypertension, migraines, chronic back pain with some left leg weakness. Patient had gone for a bike ride late afternoon yesterday. All of a sudden patient became dizzy everything started spinning perspiring couldn't see any started vomiting. He fell as he was having hot flashes. He came back home and laid down. His daughter found that when she came home that. I would get up he would lose balance. He kept throwing up and having nausea. A bit sensitive to light and noise. Some slurred speech. Patient has a slight headache. This morning patient has noted that his symptoms are worse when he mo ves his head. Denies any head trauma. Review of systems: GEN.: Tired EYES: Slight photosensitivity HEENT: None NECK: None RESPIRATORY: None CARDIOVASCULAR: None GASTROINTESTINAL: Nausea GENITOURINARY: None MUSCULOSKELETAL: Some joint pains LYMPHATICS: None HEMATOLOGICAL: None PSYCHIATRY: None NEUROLOGICAL: As above Past medical history to include: Hyperlipidemia, hypertension, chronic back pain, cervical spine problems, migraines, some radiculopathy lower extremity from back pain. Anxiety depression. Social history: Lives with his fiance. Has just started getting disability. Does not smoke. Alcohol occasionally. Does start to use marijuana for insomnia. Family history: Reviewed, noncontributory to presentation Physical examination: VITAL SIGNS: 98.7, 61, 20, 1 67/88, 98% room air GENERAL: BMI 37.3, laying in bed, avoiding light. EYES: Pupils equal. Conjunctiva normal. HEENT: External appearance of nose and ears normal, oral cavity grossly normal. NECK: JVD not raised; masses not palpable. HEART: First and second heart sounds are normal; no edema. LUNGS: Respiratory rate normal; clear to auscultation. ABDOMEN: Soft, nontender, liver spleen not palpable, no masses palpable. PSYCH: [Alert and oriented x3; mood and affect anxious l. NEUROLOGICAL: Cranial nerves grossly intact; no facial asymmetry, power and sensation grossly intact. No neck stiffness. LYMPHATICS: No lymph nodes palpable in the axilla and neck INVESTIGATIONS, reviewed in the clinical context: WBC 11.5 hemoglobin 15.9 platelets 556 sodium 139 potassium 3.6 creatinine 0.98 UA negative for leukoesterase nitrite Urine tox screen positive for barbiturates, benzodiazepines, marijuana Coronavirus [PCR]: Not detected Chest x-ray film personally reviewed by me-questionable infiltrate Chest abdomen pelvis CT, had cervical spine CT was unremarkable EKG tracing personally reviewed by me-normal sinus rhythm, 49/m Carotid Doppler no stenosis. Multinodular goiter. Assessment and plan: -This patient presents with sudden spinning of everything around him, some photophobia, some light sensitivity, nausea or vomiting. Had partial sledding of the speech. Initial computed tomography scan of the brain was unremarkable. This could be BPPV. Low-grade vestibulitis/encephalitis in the differential. Add Antivert. [place] maneuver. MRI/MRA brain. -Hyperlipidemia Simvastatin 40 mg daily -Essential hypertension Lisinopril 40 mg daily -Anxiety depression otherwise specified -Chronic insomnia melatonin Patient pending brain and head MRA MRI. Add Antivert. [place] maneuver. Home medications resumed. DVT prophylaxis. Follow with neurology. Past Medical History Past Medical History: Hyperlipidemia, Hypertension, Musculoskeletal Disorder Additional Past Medical History / Comment(s): Chronic back pain, cervical spine problems-pt unsure of what is exactly wrong. Migraines. 2 pinched nerves in back; right and left leg weakness and numbness. History of Any Multi-Drug Resistant Organisms: None Reported Past Surgical History: Appendectomy Additional Past Surgical History / Comment(s): unk patient not answering Past Anesthesia/Blood Transfusion Reactions: No Reported Reaction Past Psychological History: Anxiety, Depression, Panic Disorder Smoking Status: Former smoker Past Alcohol Use History: Occasional Past Drug Use History: Marijuana Medications and Allergies Home Medications Medication Instructions Recorded Confirmed Type Butalb/APAP/Caff 50-325-40Mg 1 tab PO Q8H PRN 06/05/21 06/05/21 History [Fioricet 50-325-40] Simvastatin 40 mg PO DAILY 06/05/21 06/05/21 History hydroCHLOROthiazide 25 mg PO DAILY 06/05/21 06/05/21 History lisinopriL 40 mg PO DAILY 06/05/21 06/05/21 History Allergies Allergy/AdvReac Type Severity Reaction Status Date / Time No Known Allergies Allergy Verified 06/05/21 19:07 Physical Exam Vitals: Vital Signs Temp Pulse Pulse Resp BP BP Pulse Ox 06/06/21 07:00 97.8 F 61 20 167/88 98 06/06/21 01:04 58 L 20 06/06/21 00:52 98.4 F 59 L 17 149/81 98 06/05/21 23:00 58 L 20 06/05/21 22:47 97.6 F 58 L 20 148/96 97 06/05/21 22:32 97.4 F L 63 18 133/85 97 06/05/21 21:35 98.1 F 68 16 149/88 98 06/05/21 17:33 49 L 20 136/76 99 Intake and Output 06/05/21 06/06/21 06/06/21 22:59 06:59 14:59 Intake Total 0 Balance 0 Intake: Oral 0 Other: Voiding Method Toilet # Voids 2 Weight 117.843 kg Results CBC & Chem 7: 06/06/21 05:03 06/06/21 05:03 Labs: Abnormal Lab Results - Last 24 Hours (Table) 06/05/21 06/05/21 06/05/21 Range/Units 17:26 17:44 17:44 WBC 11.5 H (3.8-10.6) k/uL Plt Count 556 H (150-450) k/uL APTT 21.4 L (22.0-30.0) sec Carbon Dioxide (22-30) mmol/L Glucose (74-99) mg/dL POC Glucose (mg/dL) 159 H (75-99) mg/dL Ur Specific [place] (1.001-1.035) Urine Protein (Negative) Urine Ketones (Negative) Ur Barbiturates Screen (NotDetected) U Benzodiazepines Scrn (NotDetected) U Marijuana (THC) Screen (NotDetected) 06/05/21 06/05/21 Range/Units 17:44 17:44 WBC (3.8-10.6) k/uL Plt Count (150-450) k/uL APTT (22.0-30.0) sec Carbon Dioxide 20 L (22-30) mmol/L Glucose 168 H (74-99) mg/dL POC Glucose (mg/dL) (75-99) mg/dL Ur Specific [place] >1.050 H (1.001-1.035) Urine Protein Trace H (Negative) Urine Ketones 1+ H (Negative) Ur Barbiturates Screen Detected H (NotDetected) U Benzodiazepines Scrn Detected H (NotDetected) U Marijuana (THC) Screen Detected H (NotDetected) Thrombosis Risk Factor Assmnt - Choose All That Apply Each Factor Represents 1 point: Age 41-60 years, Obesity (BMI >25) Thrombosis Risk Factor Assessment Total Risk Factor Score: 2 Thrombosis Risk Factor Assessment Level: Low Risk
[2021-06-06 20:11] LABS: Glucose,Whole Blood 90 mg/dL (75-99)
[2021-06-06] MEDS ORDERED: ATORVASTATIN 40 MG TAB PO SCH (21:00)
[2021-06-07 07:38] LABS: Glucose,Whole Blood 100 mg/dL (75-99)
[2021-06-07 07:59] VITALS: BP 159/92; PULSE 72; RESP 18; TEMP 97.5
[2021-06-07] MEDS: INSULIN ASPART (NovoLOG) 100 UNIT/ML VIAL SQ SCH (08:41)
[2021-06-07] MEDS: lisinopriL 20 MG TAB PO SCH ×2 (08:43→09:02)
[2021-06-07] MEDS: hydroCHLOROthiazide 25 MG TAB PO SCH ×2 (08:43→09:02)
[2021-06-07] MEDS: ASPIRIN 325 MG TAB PO SCH ×2 (08:43→09:02)
[2021-06-07] MEDS: MECLIZINE 12.5 MG TAB PO SCH ×2 (08:43→09:02)
[2021-06-07 12:04] LABS: Chol/HDL Ratio 5.16 Ratio; HDL Cholesterol 37.8 mg/dL (40.00-60.00); LDL Cholesterol,Calculated 115.4 mg/dL (0.0-131.0); VLDL Calculation 41.8 mg/dL (5.00-40.00)
--- NOTE | 2021-06-07 21:50 | P.DS ---
Providers Date of admission: 06/05/21 20:37 Expected date of discharge: 06/07/21 (AGAINST MEDICAL ADVICE) Attending physician: Fausto Matson Consults: 06/05/21 20:38 Consult Physician Urgent Consulting Provider: Ayana Bedolla Consult Reason/Comments: acute encephalopathy, acute vertigo Do you want consulting provider notified?: Yes 06/06/21 13:12 Consult to Anesthesia Routine Consulting Provider: Anesthesia,Services Consult Reason/Comments: Dizzy, HEAD, AMS, abn MRI, R/O pseudotumor/infection. Plz chk Opening pressur Primary care physician: Stated None Hospital Course: Chief Complaint: Everything spinning History of presenting complaint This is a pleasant 50-year-old patient was chronic stable medical conditions include hyperlipidemia, hypertension, migraines, chronic back pain with some left leg weakness. Patient had gone for a bike ride late afternoon yesterday. All of a sudden patient became dizzy everything started spinning perspiring couldn't see any started vomiting. He fell as he was having hot flashes. He came back home and laid down. His daughter found that when she came home that. I would get up he would lose balance. He kept throwing up and having nausea. A bit sensitive to light and noise. Some slurred speech. Patient has a slight headache. This morning patient has noted that his symptoms are worse when he mo ves his head. Denies any head trauma. Patient had MRI of the brain and MRA. There is some nonspecific findings. More dedicated MRI of the brain was repeated. Unremarkable. Patient is scheduled fo r a lumbar puncture. June 07: Patient left AMA this morning. Nurse called me. Patient does see a pain specialist as an outpatient. Consultation: Dr. [place] from neurology Past medical history to include: Hyperlipidemia, hypertension, chronic back pain, cervical spine problems, migraines, some radiculopathy lower extremity from back pain. Anxiety depression. Social history: Lives with his fiance. Has just started getting disability. Does not smoke. Alcohol occasionally. Does start to use marijuana for insomnia. Family history: Reviewed, noncontributory to presentation Physical examination: VITAL SIGNS: 98.7, 61, 20, 1 67/88, 98% room air GENERAL: BMI 37.3, laying in bed, avoiding light. EYES: Pupils equal. Conjunctiva normal. HEENT: External appearance of nose and ears normal, oral cavity grossly normal. NECK: JVD not raised; masses not palpable. HEART: First and second heart sounds are normal; no edema. LUNGS: Respiratory rate normal; clear to auscultation. ABDOMEN: Soft, nontender, liver spleen not palpable, no masses palpable. PSYCH: [Alert and oriented x3; mood and affect anxious l. NEUROLOGICAL: Cranial nerves grossly intact; no facial asymmetry, power and sensation grossly intact. No neck stiffness. LYMPHATICS: No lymph nodes palpable in the axilla and neck INVESTIGATIONS, reviewed in the clinical context: MRI, MRA of the brain: Unremarkable 2-D echocardiogram: EF 50-55%. WBC 11.5 hemoglobin 15.9 platelets 556 sodium 139 potassium 3.6 creatinine 0.98 UA negative for leukoesterase nitrite Urine tox screen positive for barbiturates, benzodiazepines, marijuana Coronavirus [PCR]: Not detected Chest x-ray film personally reviewed by me-questionable infiltrate Chest abdomen pelvis CT, had cervical spine CT was unremarkable EKG tracing personally reviewed by me-normal sinus rhythm, 49/m Carotid Doppler no stenosis. Multinodular goiter. Assessment and plan: -This patient presents with sudden spinning of everything around him, some p hotophobia, some light sensitivity, nausea or vomiting. Had partial sledding of the speech. Initial computed tomography scan of the brain was unremarkable. This could be BPPV. Low-grade vestibulitis/encephalitis in the differential. Add Antivert. [place] maneuver. MRI/MRA brain. -Hyperlipidemia Simvastatin 40 mg daily -Essential hypertension Lisinopril 40 mg daily -Anxiety depression otherwise specified -Chronic insomnia melatonin Patient left AMA today Patient Condition at Discharge: Stable Plan - Discharge Summary New Discharge Prescriptions: No Action hydroCHLOROthiazide 25 mg PO DAILY lisinopriL 40 mg PO DAILY Butalb/APAP/Caff 50-325-40Mg [Fioricet 50-325-40] 1 tab PO Q8H PRN PRN Reason: Migraine Headache Simvastatin 40 mg PO DAILY Discharge Medication List Butalb/APAP/Caff 50-325-40Mg [Fioricet 50-325-40] 1 tab PO Q8H PRN 06/05/21 [History] Simvastatin 40 mg PO DAILY 06/05/21 [History] hydroCHLOROthiazide 25 mg PO DAILY 06/05/21 [History] lisinopriL 40 mg PO DAILY 06/05/21 [History] Follow up Appointment(s)/Referral(s): None,Stated [Primary Care Provider] - 1-2 days Patient Instructions/Handouts: Vertigo (DC) Activity/Diet/Wound Care/Special Instructions: jodi maneuver every 2 hours Discharge Disposition: Left Against Medical Advice
== END 2021-06-07 09:13 | disposition left against medical advice (07) ==
LOC: EC 17:10 → 6NMEDSUR 20:37
PROVIDERS: ADMIT Hospitalist; ATTEND Hospitalist
DX: R42 Dizziness and giddiness (principal); Z20.822 Contact with and (suspected) exposure to COVID-19; E66.9 Obesity, unspecified; E78.00 Pure hypercholesterolemia, unspecified; E78.5 Hyperlipidemia, unspecified; F12.10 Cannabis abuse, uncomplicated; F41.0 Panic disorder [episodic paroxysmal anxiety]; F41.8 Other specified anxiety disorders; F51.04 Psychophysiologic insomnia; G43.909 Migraine, unspecified, not intractable, without status migrainosus; G89.29 Other chronic pain; G93.40 Encephalopathy, unspecified; H61.21 Impacted cerumen, right ear; I10 Essential (primary) hypertension; R29.700 NIHSS score 0; Z53.29 Procedure and treatment not carried out because of patient's decision for other reasons; Z79.899 Other long term (current) drug therapy; Z87.891 Personal history of nicotine dependence; Z68.37 Body mass index [BMI] 37.0-37.9, adult
CPT/HCPCS: 96374; 96375; 99285; 36415; 93005; 93306; 80061; 80053; 80048; 84443; 82140; 84484; 85025 ×2; 85610; 85730; 81003; 80306; 80143; 83036; 87635; 80179; 71046; 93880; 72125; 70450; 71260; 74177; 70544; 70551; 70552; G0378 ×3; G0480; J2060; J3360; J2405; A9585; Q9967; 80320